=== PATIENT | male | born 1965 | race Caucasian/White ===

== ENCOUNTER 2022-09-10 18:04 | Emergency (ER) | payer OTHER ==
[~2022-09-10] VITALS: Ht 175.3 cm; Wt 122.7 kg
[2022-09-10] MEDS ORDERED: BUPR1FIL7 SL (18:14)
[2022-09-10] MEDS ORDERED: BUPR1FIL3 SL (20:06)
[2022-09-10 20:12] VITALS: BP 124/69; PULSE 66; RESP 18; TEMP 97.8
== END 2022-09-10 20:21 | disposition home or self-care (01) ==
LOC: EMS 18:06
DX: F11.90 Opioid use, unspecified, uncomplicated (principal); F17.210 Nicotine dependence, cigarettes, uncomplicated; Z98.890 Other specified postprocedural states; Z88.5 Allergy status to narcotic agent; Z88.8 Allergy status to other drugs, medicaments and biological substances
CPT/HCPCS: 99281; Z7502